=== PATIENT | female | born 1975 | race African-American/Black ===

== ENCOUNTER 2017-05-04 14:50 | Inpatient (IN) | payer OTHER ==
[~2017-05-04] VITALS: Ht 154.9 cm; Wt 85.0 kg
[2017-05-04 16:34] VITALS: Ht 154.9 cm; Wt 85.0 kg
[2017-05-04] MEDS ORDERED: [UNRECOGNIZED DRUG - CODE] SQ (16:55)
[2017-05-04] MEDS ORDERED: PRENTAB26 PO (16:55)
[2017-05-04] MEDS ORDERED: DOCU-94 PO (16:55)
[2017-05-04] MEDS ORDERED: FRCT/ PO (17:08)
[2017-05-04] MEDS ORDERED: BUPIVACAINE 0.25% 30 ML VIAL ONE (17:13)
[2017-05-04] MEDS ORDERED: EpHEDrine SULFATE INJ 50 MG/ML AMP ONE (17:13)
[2017-05-04] MEDS ORDERED: FENTANYL 2MCG/ML ROPIV 1.25MG/ML 100ML BAG EPI ONE (17:14)
[2017-05-04] MEDS ORDERED: FENTANYL CITRATE INJ 50 MCG/1 ML 2 ML VIAL ONE (17:14)
[2017-05-04 17:15] LABS: HEMOGLOBIN 11.7 g/dL (12.0-16.0); MEAN CELL VOLUME 87.3 fL (80-100); MEAN CORPUSCULAR HEMOGLOBIN 29.2 pg (25-34); MEAN PLATELET VOLUME 11.2 fL (7.4-10.4); PLATELET COUNT 170 K/uL (130-400); RED CELL DISTRIBUTION WIDTH CV 13.1 % (11.5-14.5); RED CELL DISTRIBUTION WIDTH SD 41.4 fL (36.4-46.3); WHITE BLOOD COUNT 9.12 K/uL (4.8-10.8)
[2017-05-04 17:19] LABS: MEAN CORPUSCULAR HGB CONC 33.4 g/dl (32-36)
[2017-05-04 17:27] LABS: PTT PATIENT 25.2 SECONDS (21.0-31.0)
[2017-05-04] MEDS ORDERED: LACTATED RINGER'S 1000ML 500 ML IV PRN (18:19)
[2017-05-04] MEDS ORDERED: NALOXONE HCL INJ 1 MG in SODIUM CHLORIDE 0.9% 1000ML 1,000 ML IV PRN (18:19)
[2017-05-04] MEDS ORDERED: DiphenhydrAMINE HCL 50 MG/ML VIAL IV PRN (18:30)
[2017-05-04] MEDS ORDERED: NALBUPHINE HCL INJ 10 MG/ML AMP IV PRN (18:30)
[2017-05-04] MEDS ORDERED: NALOXONE HCL INJ 0.4 MG/1 ML VIAL/CARP IV PRN (18:30)
[2017-05-04] MEDS ORDERED: ONDANSETRON INJ 2 MG/ML 2 ML VIAL IV PRN (18:30)
[2017-05-04] MEDS ORDERED: EpHEDrine SULFATE INJ 50 MG/ML AMP IV PRN (18:30)
[2017-05-04] MEDS ORDERED: LACTATED RINGER'S 1000ML 1,000 ML IV PRN (18:57)
[2017-05-04] MEDS: FENTANYL 2MCG/ML ROPIV 1.25MG/ML 100ML BAG EPI PRN (19:10)
[2017-05-04] MEDS: LACTATED RINGER'S 1000ML 1,000 ML IV SCH (19:16)
[2017-05-04] MEDS ORDERED: OXYTOCIN 30 UNITS/500ML NSS IV ONE (23:15)
[2017-05-05] MEDS: LACTATED RINGER'S 1000ML 1,000 ML IV SCH (00:02)
--- NOTE | 2017-05-05 00:20 | HISTORY & PHYSICAL EXAMINATION ---
DATE OF ADMISSION: 05/04/2017 HISTORY OF PRESENT ILLNESS: This is a 41-year-old G1, P0, due date is 05/08/2017 making her 39 weeks and 3 days. The patient was seen today in the office for routine visit. She was found to be 4 cm dilated. She was therefore sent to labor and delivery for admission. On arrival to labor and delivery she had no shortness of breath, no chills, no fever. heart rate was category 1. The patient was enzo every 2-8 minutes. She was examined and found to be about 5 cm dilated. Decision was therefore made to admit patient. COURSE: Complicated by the followin. History of DVT and pulmonary embolism. The patient was placed on Lovenox and eventually switched to heparin 10,000 units. 2. She is also advanced maternal age and saw maternal medicine for evaluation. LABS: Blood type is O positive, antibody negative, rubella immune, GBS negative. PAST MEDICAL HISTORY: 1. History of DVT. 2. History of pulmonary embolism. 3. History of abnormal Pap smear. 4. History of headaches. PAST SURGICAL HISTORY: 1. History of appendectomy. 2. Colposcopy and loop electrical excision procedure. SOCIAL HISTORY: The patient denies tobacco, drug or alcohol use. FAMILY HISTORY: Noncontributory. PHYSICAL EXAMINATION: GENERAL: Well-developed, well-nourished female in no acute distress. HEART: S1, S2, regular rhythm and rate. LUNGS: Clear to auscultation bilaterally. ABDOMEN: Gravid. PELVIC: On admission was 5 cm. EXTREMITIES: No cyanosis, clubbing or edema. ASSESSMENT AND PLAN: A 41-year-old G1, P0 at 39 weeks and 3 days, admitted for labor, history of DVT and pulmonary embolism. The patient is on heparin. Plan is to admit patient and anticipate vaginal delivery.
[2017-05-05] MEDS: FENTANYL 2MCG/ML ROPIV 1.25MG/ML 100ML BAG EPI PRN (04:18)
[2017-05-05] MEDS ORDERED: MISOPROSTOL 200 MCG TAB PR ONE (06:11)
[2017-05-05] MEDS ORDERED: ACETAMINOPHEN 325 MG TAB PO PRN (06:30)
[2017-05-05] MEDS ORDERED: HYDROCORTISONE ACETATE 25 MG SUPP PR PRN (06:30)
[2017-05-05] MEDS ORDERED: OXYCODONE/ACETAMINOPHEN 5-325 TAB PO PRN (06:30)
[2017-05-05] MEDS ORDERED: SUPERCREAM 0.870 % 15GM JAR EXT PRN (06:30)
[2017-05-05] MEDS ORDERED: ACETAMINOPHEN/CODEINE 300/30MG TAB PO PRN (06:30)
[2017-05-05] MEDS ORDERED: BENZOCAINE 20% AER SPR 82.5 GM CAN EXT PRN (06:30)
[2017-05-05] MEDS ORDERED: LANOLIN OINT EXT PRN (06:30)
[2017-05-05] MEDS ORDERED: OXYTOCIN 30 UNITS/500ML NSS IV PRN (06:30)
[2017-05-05] MEDS ORDERED: MISOPROSTOL 200 MCG TAB PR SCH (06:30)
--- NOTE | 2017-05-05 06:37 | DELIVERY SUMMARY ---
DATE OF OPERATION: 05/05/2017 DELIVERY NOTE The patient delivered a live male in left occiput anterior presentation. There were 2 nuchal cords which were loosely reduced. was delivered. Cord was clamped and cut. The patient had moderate meconium, which was known. Nursery team was available for delivery. The patient's weight and Apgars in the pediatric record. Cord gas and cord blood was obtained. Placenta was spontaneously delivered. Inspection of the perineum showed a midline second-degree laceration with left labial tear. These were repaired in layers with 2-0 and 3-0 Vicryl respectively. Rectal exam post repair showed good sphincter tone. Estimated blood loss 500 mL Baby and mother are doing well in recovery. All instruments removed and accounted for x2 including needles and sponges. I attest to the content of the Intraoperative Record and any orders documented therein. Any exception s are noted below.
--- NOTE | 2017-05-05 07:29 | Anesthesia Procedure Note ---
Anesthesia Epidural Removal Nt Date & Time May 05, 2017 at 07:29 Vital Signs Pain Intensity: 0.0 Notes Mental Status: alert / awake / arousable, participated in evaluation Nausea / Vomiting: adequately controlled Pain: adequately controlled Airway Patency, RR, SpO2: stable & adequate BP & HR: stable & adequate Hydration State: stable & adequate Neuraxial Anesthesia: was administered Anesthetic Complications: no major complications apparent, pt satisfied with anesthetic care Epidural: removed without complications, with tip intact
[2017-05-05] MEDS: IBUPROFEN 600 MG TAB PO PRN ×3 (07:32→19:52)
[2017-05-05] MEDS: DOCUSATE SODIUM 100 MG CAP PO SCH ×2 (08:00→19:52)
[2017-05-05] MEDS: PRENATAL VITAMIN TAB PO SCH (08:01)
[2017-05-05] MEDS: FERROUS SULFATE 325 MG TAB PO SCH (08:01)
[2017-05-05 14:12] VITALS: BP 105/69; PULSE 73; TEMP 37; O2SAT 98
[2017-05-05] MEDS: ACETAMINOPHEN/CODEINE 300/30MG TAB PO PRN ×2 (14:45→19:53)
[2017-05-05 16:04] VITALS: BP 114/75; PULSE 77; TEMP 36.8; O2SAT 97
[2017-05-05 20:00] VITALS: BP 106/71; PULSE 71; TEMP 36.6
[2017-05-05 23:15] VITALS: BP 102/64; PULSE 76; TEMP 36.7
[2017-05-06 04:40] VITALS: BP 100/65; PULSE 67; TEMP 36.6
[2017-05-06] MEDS: IBUPROFEN 600 MG TAB PO PRN ×3 (04:40→19:52)
[2017-05-06] MEDS: ACETAMINOPHEN/CODEINE 300/30MG TAB PO PRN ×3 (04:41→19:52)
[2017-05-06 06:45] LABS: HEMATOCRIT 29.3 % (37-47); HEMOGLOBIN 9.7 g/dL (12.0-16.0)
[2017-05-06 08:00] VITALS: BP 106/71; PULSE 68; TEMP 36.4
[2017-05-06] MEDS: DOCUSATE SODIUM 100 MG CAP PO SCH ×2 (08:13→19:48)
[2017-05-06] MEDS: FERROUS SULFATE 325 MG TAB PO SCH (08:13)
[2017-05-06] MEDS: PRENATAL VITAMIN TAB PO SCH (08:13)
--- NOTE | 2017-05-06 08:54 | OB/GYN Progress Note ---
[facility] Progress Note Date of Service May 06, 2017. Subjective conversation w/ patient, physical exam Ambulation: ambulating normally Voiding: no voiding problems Passing Gas: Yes Diet Tolerance: Regular Diet Lochia: Moderate Feeding Type: Breast Feeding Pain: /10 Notes: Doing well. Pain well controlled. Lochia decreasing. tolerating regular diet. Ambulating without difficulty. Objective Vital Signs Date Time Temp Pulse Resp B/P (MAP) Pulse Ox O2 Delivery O2 Flow Rate FiO2 05/06/17 04:40 36.6 67 18 100/65 (77) Room Air 05/05/17 23:15 Room Air 05/05/17 23:15 36.7 76 18 102/64 (77) Room Air 05/05/17 20:00 36.6 71 18 106/71 (83) Room Air 05/05/17 16:09 Room Air 05/05/17 16:04 36.8 77 18 114/75 (88) 97 Room Air 05/05/17 14:12 37.0 73 18 105/69 (81) 98 Room Air 05/05/17 09:10 Room Air Physical Exam General Appearance: WELL-APPEARING Respiratory/Chest: chest non-tender, lungs clear Cardiovascular: regular rate, rhythm Abdomen: normal bowel sounds, soft Fundus: Firm Extremities: normal range of motion, non-tender, no calf tenderness Laboratory Results Last 24 Hours Test 05/06/17 06:06 Hemoglobin 9.7 g/dL Hematocrit 29.3 % Assessment and Plan Post- Day Number: 1 Continue Routine Care: -Continue routine care -SCD's when in bed -Will restart Lovenox
[2017-05-06 09:48] LABS: HEMATOCRIT 32.7 % (37-47); HEMOGLOBIN 10.6 g/dL (12.0-16.0); MEAN CELL VOLUME 88.6 fL (80-100); MEAN CORPUSCULAR HEMOGLOBIN 28.7 pg (25-34); MEAN CORPUSCULAR HGB CONC 32.4 g/dl (32-36); PLATELET COUNT 134 K/uL (130-400); RED CELL DISTRIBUTION WIDTH CV 13.4 % (11.5-14.5); RED CELL DISTRIBUTION WIDTH SD 43.1 fL (36.4-46.3); WHITE BLOOD COUNT 8.79 K/uL (4.8-10.8)
[2017-05-06 09:58] LABS: INR 0.8 (0.9-1.1)
[2017-05-06 10:06] LABS: CREATININE 0.56 mg/dl (0.60-1.20)
[2017-05-06] MEDS ORDERED: LOVENOX TEACHING KIT STA (12:44)
[2017-05-06] MEDS: ENOXAPARIN 40 MG/0.4 ML SYR SQ SCH (14:22)
[2017-05-06 15:05] VITALS: BP 107/72; PULSE 82; TEMP 36.6
[2017-05-06] MEDS ORDERED: BISACODYL 5 MG TABEC PO SCH (20:00)
[2017-05-07] MEDS: ACETAMINOPHEN/CODEINE 300/30MG TAB PO PRN ×2 (00:49→05:07)
[2017-05-07] MEDS: IBUPROFEN 600 MG TAB PO PRN ×2 (00:49→05:07)
[2017-05-07 01:04] VITALS: BP_SYST 112; PULSE 74; TEMP 36.4
[2017-05-07 06:26] LABS: HEMATOCRIT 31.7 % (37-47); MEAN CELL VOLUME 88.5 fL (80-100); MEAN CORPUSCULAR HEMOGLOBIN 27.9 pg (25-34); MEAN CORPUSCULAR HGB CONC 31.5 g/dl (32-36); MEAN PLATELET VOLUME 10.7 fL (7.4-10.4); PLATELET COUNT 136 K/uL (130-400); RED CELL DISTRIBUTION WIDTH CV 13.5 % (11.5-14.5); RED CELL DISTRIBUTION WIDTH SD 43.3 fL (36.4-46.3); WHITE BLOOD COUNT 6.67 K/uL (4.8-10.8)
[2017-05-07] MEDS ORDERED: BISACODYL 10 MG SUPP PR PRN (07:00)
[2017-05-07 07:20] VITALS: BP 110/71; PULSE 70; TEMP 36.6
[2017-05-07] MEDS: DOCUSATE SODIUM 100 MG CAP PO SCH (07:55)
[2017-05-07] MEDS: PRENATAL VITAMIN TAB PO SCH (07:55)
[2017-05-07] MEDS: FERROUS SULFATE 325 MG TAB PO SCH (07:55)
--- NOTE | 2017-05-07 08:35 | OB/GYN Progress Note ---
[facility] Progress Note Date of Service May 07, 2017. Subjective conversation w/ patient, physical exam Ambulation: ambulating normally Voiding: no voiding problems Passing Gas: Yes Diet Tolerance: Regular Diet Lochia: Small Feeding Type: Breast Feeding Pain: 06/03 Notes: Doing well, no concerns. Tolerating regular diet. Ambulating without difficulty. Lochia decreasing. Review of Systems Constitutional: No fever, No chills, No sweats, No weight loss, No weakness, No fatigue, No problem reported Respiratory: No cough, No sputum, No wheezing, No shortness of breath, No dyspnea on exertion, No dyspnea at rest, No hemoptysis, No problem reported Cardiac: No chest pain, No orthopnea, No PND, No edema, No claudication, No palpitations, No problem reported Abdomen: No pain, No nausea, No vomiting, No diarrhea, No constipation, No GI bleeding, No problem reported Female : No see HPI, No dysuria, No urinary frequency, No hematuria, No incontinence, No abnormal vaginal bleeding, No vaginal discharge, No problem reported Objective Vital Signs Date Time Temp Pulse Resp B/P (MAP) Pulse Ox O2 Delivery O2 Flow Rate FiO2 05/07/17 07:20 36.6 70 16 110/71 (84) Room Air 05/07/17 01:06 Room Air 05/07/17 01:04 36.4 74 18 112/ (37) Room Air 05/06/17 15:05 36.6 82 16 107/72 (84) Room Air 05/06/17 15:05 Room Air Laboratory Results Last 24 Hours Test 05/06/17 09:21 05/07/17 06:03 White Blood Count 8.79 K/uL 6.67 K/uL Red Blood Count 3.69 M/uL 3.58 M/uL Hemoglobin 10.6 g/dL 10.0 g/dL Hematocrit 32.7 % 31.7 % Mean Corpuscular Volume 88.6 fL 88.5 fL Mean Corpuscular Hemoglobin 28.7 pg 27.9 pg Mean Corpuscular Hemoglobin Concent 32.4 g/dl 31.5 g/dl RDW Standard Deviation 43.1 fL 43.3 fL RDW Coefficient of Variation 13.4 % 13.5 % Platelet Count 134 K/uL 136 K/uL Mean Platelet Volume 11.0 fL 10.7 fL Prothrombin Time 8.9 SECONDS Prothromb Time International Ratio 0.8 Creatinine 0.56 mg/dl Est Creatinine Clear Calc Drug Dose 133.4 ml/min Estimated GFR () 136.1 Estimated GFR (Non- 117.5 Assessment and Plan Post- Day Number: 2 Continue Routine Care: -D/C home today -F/U in 6 weeks
[2017-05-07] MEDS ORDERED: MTR600X PO (08:37)
--- NOTE | 2017-05-07 08:38 | Discharge Instructions ---
Discharge Instructions Date of Service May 07, 2017. Admission Reason for Admission: Labor Check Discharge Discharge Diagnosis / Problem: Vaginal Delivery Discharge Goals Goal(s): Routine recovery after delivery Medications Continue Dispensed Medications: supercream, dermaplast, tucks, lansinoh Activity Recommendations Activity Limitations: per Instructions/Follow-up section . Instructions / Follow-Up Instructions / Follow-Up ACTIVITY RECOMMENDATIONS: * Gradual return to full activity over the next 2-3 weeks. * No lifting - nothing heavier than baby over the next 2-3 weeks. * Do not engage in vigorous exercise, sexual activity or sports until cleared by your physician. * Do not drive or operate any motorized equipment until cleared by your physician. * You may shower/bathe daily. BREAST CARE: If you are not breast feeding: * Wear a supportive bra 24 hours a day for one to two weeks. * Avoid stimulating your breasts and nipples as much as possible during the first few weeks after delivery. * When taking a shower, have the warm water hit your back, not breasts. * When your breasts feel full, apply ice packs. Usually three to four times a day helps ease the discomfort. * Take a mild pain medication (Tylenol/Motrin) when you are uncomfortable. If breast feeding: * Use breast milk to lubricate nipples. Lansinoh cream may be used for sore nipples. You do not need to remove cream prior to breast feeding. If using a different brand of cream, check the label for directions regarding removal of cream prior to nursing. * Wear a supportive bra. * If having problems with breasts or breast feeding, call a risk management consultant or your health care provider. EPISIOTOMY CARE: After delivery, if you have an episiotomy (stitches), the following steps will ease discomfort and aid healing. * For the first 24 hours after delivery, place ice packs next to your episiotomy to help reduce swelling. * After the first 24 hour-period, sitz baths, either portable or in the tub, are suggested. A shower with a shower arm sprayed over the episiotomy may be comforting. * Kerry care should be done after each voiding and bowel movement. Squirt warm water from a plastic bottle over the perineum (region of the body between the anus and urinary opening) and pat dry. * Use Dermoplast to ease discomfort. Shake container. Mcdonald directly over the episiotomy. * Place a Tucks on a clean sanitary pad next to your episiotomy. OVER THE COUNTER MEDICATION: * For discomfort or pain, you may use Acetaminophen (Tylenol), Ibuprofen (Advil ), or Naproxen (Aleve) following the package directions. * For constipation you may use Colace following the package directions. SPECIAL CARE INSTRUCTIONS: When you are discharged from the hospital, it is important for you to follow the instructions listed below: * During the first week at home, you should be able to care for yourself and your baby. In addition, the usual light household activities are encouraged. * Limit your activities to the way you feel. Do not try to clean the house or move furniture. Be sensible. * If you actively engage in sports and have done so up until the time of your delivery, you may resume these activities as soon as you feel able. This may take up to one month or even longer. Use good judgment. * Continue to take your vitamins for at least six weeks after the of your baby. * Your diet need not be limited unless you were on a special diet before your delivery. Breast-feeding mothers need around 2500 calories per day and at least 64-80 ounces of fluid per day (8 to 10 glasses). * You should eat foods from the four major food groups. Crash diets or fad diets are to be avoided. Eating lean meats, fresh fruits and vegetables, low-fat dairy products, high fiber foods and a regular exercise program, will help you get back to your pre- weight without putting your health at risk. * Constipation is sometimes a problem after delivery. Take a mild laxative as needed. If breast feeding, Milk of Magnesia is acceptable to use. You may use a suppository or Fleets enema if no episiotomy. * A daily shower or tub bath is suggested. Be sure to thoroughly and gently dry the perineum. * A bloody vaginal discharge will usually continue until around four weeks post . A small amount of bleeding may continue for as long as six weeks. Vaginal discharge changes from the bright red bleeding after delivery to pink then brownish and finally yellowish-pink before becoming white and disappearing. * Bleeding may increase with activity. Your first period may come in 4-8 weeks. If you are breast feeding, your period may be delayed even longer. * [place] (sex) can begin whenever both you and your partner feel comfortable and do not have any form of genital infection. It is recommended that you wait until after your return appointment and discuss with your physician. If you have questions, please talk to your health care practitioner. A condom should be used to prevent infection and . * Foreplay, gentle intercourse and lubrication is very important the first several times to prevent pain. A water-based lubricant such as K-Y jelly or Astroglide may be used. * Tampons may be used six weeks after delivery. * Douching should be avoided for 6 weeks after delivery. * If you have RH negative blood and your baby is RH positive, you will receive RHOGAM by injection prior to discharge. The nurse will give you a card to keep with you that has the date and place that you received RHOGAM after delivery. * During your care, you had a Rubella screen done to check for the presence of rubella antibodies in your blood. If your test was negative, you will receive a Rubella vaccine prior to discharge. This vaccine may cause a fever, soreness at the injection site and flu-like symptoms. If these symptoms persist, notify your health care practitioner. is not advised for three months after a Rubella vaccine. There is a higher chance of having a baby with defects if conceived within three months of getting the vaccine. * If you were discharged 24 hours from delivery or before 48 hours: Visiting nurses will come to your home 48 hours after discharge to assess you and your baby. The visiting nurse will meet with you while you are in the hospital to arrange a time and get directions to your home. * Verbalizes understanding of car seat law as reviewed with patient nursing. * Car Seat hand-out given and reviewed with patient by nursing. * Shaken baby information reviewed with patient by nursing. Call you doctor if: * Heavy bleeding (saturating several pads an hour) or passing clots the size of your fist. * A fever >101 degrees F (38.3 degrees C) on two occasions four hours apart and/or chills. * Unusual pain in the pelvic or vaginal areas. * "Baby Blues" lasting longer than two weeks. If you have any questions or concerns, call your health care practitioner at . FOLLOW-UP VISIT: * Please call the office at to schedule a 6 week examination. It is important you keep this appointment. * It is important for you to make arrangements for either yearly or twice yearly check-ups thereafter. Current Hospital Diet Patient's current hospital diet: Regular OB Diet Discharge Diet Recommended Diet: Regular OB Diet Pending Studies Studies pending at discharge: no Medical Emergencies . Who to Call and When: Medical Emergencies: If at any time you feel your situation is an emergency, please call 911 immediately. . Non-Emergent Contact Non-Emergency issues call your: Primary Care Provider, [facility] . . "Provider Documentation" section prepared by Gabriele Potts. . VTE Core Measure Inpt VTE Proph given/why not?: Enoxaparin (Lovenox)SQ
[2017-05-07] MEDS: ENOXAPARIN 40 MG/0.4 ML SYR SQ SCH (13:06)
== END 2017-05-07 15:05 | disposition home or self-care (01) | DRG 775 ==
LOC: C.LD 14:50 → C.OPB 14:50 → C.LD 16:47 → C.OPB 16:47 → C.OBG 05-05 09:17
PROVIDERS: ADMIT Obstetrics & Gynecology; ATTEND Obstetrics & Gynecology
PROC: 10E0XZZ Delivery of Products of Conception, External Approach (ICD-10-PCS; principal; 2017-05-05)
PROC: 0KQM0ZZ Repair Perineum Muscle, Open Approach (ICD-10-PCS; principal; 2017-05-05)
PROC: 0HQ9XZZ Repair Perineum Skin, External Approach (ICD-10-PCS; principal; 2017-05-05)
DX: O09.513 Supervision of elderly primigravida, third trimester (principal); O70.1 Second degree perineal laceration during delivery; O70.0 First degree perineal laceration during delivery; Z37.0 Single live birth; O69.81X0 Labor and delivery complicated by cord around neck, without compression, not applicable or unspecified; Z3A.39 39 weeks gestation of pregnancy; Z79.01 Long term (current) use of anticoagulants; Z86.718 Personal history of other venous thrombosis and embolism; Z86.711 Personal history of pulmonary embolism